=== PATIENT | female | born 1995 | race Caucasian/White ===

== ENCOUNTER → 2018-08-04 | Outpatient (REF) | payer BC, OTHER ==
[2018-08-04 15:27] LABS: ESTRADIOL 57.6 PG/ML; TOTAL 25(OH) VITAMIN D 24.6 NG/ML (30.0-100.0)
== END ==
LOC: M LAB REF 14:27
PROVIDERS: ATTEND Nurse Practitioner Women's Health
DX: N91.2 Amenorrhea, unspecified (principal)

== ENCOUNTER 2019-04-21 08:05 | Emergency (ER) | payer BC, OTHER ==
[~2019-04-21] VITALS: Ht 160 cm; Wt 61.4 kg
[2019-04-21 08:05] VITALS: BP 133/79
[2019-04-21] MEDS ORDERED: TETRACAINE 0.5% OPHTH SOLN 4ML OS ONE (08:15)
[2019-04-21] MEDS ORDERED: FLUORESCEIN OPHTH 1 MG STRIP OS ONE (08:15)
[2019-04-21] MEDS ORDERED: ERYTOIN8 OP (08:29)
== END 2019-04-21 08:45 | disposition home or self-care (01) ==
LOC: M ED 08:05
DX: T15.02XA Foreign body in cornea, left eye, initial encounter (principal); X58.XXXA Exposure to other specified factors, initial encounter; Y92.89 Other specified places as the place of occurrence of the external cause; J45.909 Unspecified asthma, uncomplicated

== ENCOUNTER → 2021-05-22 | Outpatient (REF) ==
[~2021-05-22] MED LIST: ERYTOIN8 OP
== END ==
LOC: M EMP 10:27
PROVIDERS: ATTEND Family Medicine
DX: Z20.822 Contact with and (suspected) exposure to COVID-19 (principal)

== ENCOUNTER → 2021-05-25 | Outpatient (REF) ==
[2021-05-25 12:31] LABS: RSV AMPLIFICATION NEGATIVE (NEGATIVE)
== END ==
LOC: M LABSMTC 11:46
PROVIDERS: ATTEND Family Medicine
DX: Z20.822 Contact with and (suspected) exposure to COVID-19 (principal)